=== PATIENT | female | born 1965 | race Caucasian/White ===

== ENCOUNTER 2017-06-13 05:26 | Day surgery (SDC) | payer SELFPAY ==
[~2017-06-13] VITALS: Ht 162.6 cm; Wt 74.6 kg
[~2017-06-13 05:26] MED LIST: 00186-0370-20 IH; ACTOS 15MG TAB15 MG PO; ASPIRIN E.C. 8181 MG PO; BYETTA 5MC300 MCG/SY SC; CETIRIZINE; COLACE 100100 MG/CAP PO; CYMBALTA 60MG60 MG PO; HCTZ; JANUMET 1000 MG1 TA1 PO; JANUMXR1000-50 PO; LEVEMIR100 U/ML SQ; LEXAPRO 10MG10 MG PO; LEXAPRO20 MG PO; LINZESS145CAP PO; LORTAB 7.5/5001 TAB PO; MOTRIN 600600 MG/TAB PO; NAPROSYN500 MG PO; NEXIUM24HROTC PO; NIRAVAM0.25 MG PO; NORCO 325 MG-101 TAB PO; PHENERGAN 25 TA25 MG PO; PROVENTIL0.09 MG/A1 IH; RT SPIRIVA18 MCG IH; SINGULAIR 110 MG/TAB PO; SOMA 350MG350 MG/TAB PO; XANAX .25M0.25 MG/TA PO; ZANTAC 7575 MG PO; ZOFRAN 4MG T4 MG/TAB PO
[2017-06-13 05:55] VITALS: BP 123/87; PULSE 100; TEMP 98.3
[2017-06-13] MEDS ORDERED: GLUCOTROL10 MG PO (06:21)
[2017-06-13 07:22] VITALS: BP 117/78; PULSE 100
[2017-06-13 07:37] VITALS: BP 110/73; PULSE 88
[2017-06-13 07:52] VITALS: BP 113/71; PULSE 89
[2017-06-13] MEDS ORDERED: NORCO 325 MG-51 TAB PO (07:59)
[2017-06-13] MEDS ORDERED: COLACE 100100 MG/CAP PO (08:00)
[2017-06-13] MEDS ORDERED: ZOFRAN 4MG T4 MG/TAB PO (08:01)
[2017-06-13] MEDS ORDERED: MOBIC15 MG PO (08:02)
== END 2017-06-13 08:21 | disposition home or self-care (01) ==
LOC: SDCO 05:26
DX: M65.4 Radial styloid tenosynovitis [de Quervain] (principal); F41.9 Anxiety disorder, unspecified; J45.909 Unspecified asthma, uncomplicated; F32.9 Major depressive disorder, single episode, unspecified; E11.9 Type 2 diabetes mellitus without complications; F17.210 Nicotine dependence, cigarettes, uncomplicated; Z90.49 Acquired absence of other specified parts of digestive tract; Z90.710 Acquired absence of both cervix and uterus; Z79.4 Long term (current) use of insulin; Z79.82 Long term (current) use of aspirin; Z88.1 Allergy status to other antibiotic agents; Z88.2 Allergy status to sulfonamides; Z88.0 Allergy status to penicillin; Z88.8 Allergy status to other drugs, medicaments and biological substances; Z82.5 Family history of asthma and other chronic lower respiratory diseases; Z80.6 Family history of leukemia; Z83.3 Family history of diabetes mellitus; Z82.49 Family history of ischemic heart disease and other diseases of the circulatory system
CPT/HCPCS: J0690; J1100; J1885; J2250; J2405; J2704; J3010

== ENCOUNTER 2018-11-26 10:15 | Emergency (ER) | payer SELFPAY ==
[~2018-11-26] VITALS: Ht 162.6 cm; Wt 72.7 kg
[~2018-11-26 10:15] MED LIST changes: +GLUCOTROL10 MG PO; +MOBIC15 MG PO; +NORCO 325 MG-51 TAB PO
[2018-11-26 10:50] VITALS: TEMP 98.1
[2018-11-26 13:07] LABS: BASO % 0.5 % (0.0-2.0); EOS # 0.1 (0.0-0.7); EOS % 1.2 % (0-4.0); GRAN # 5.3 (1.4-6.5); GRAN % 64.7 % (42.2-75.2); HEMATOCRIT 47.3 % (37.0-47.0); HEMOGLOBIN 16.6 g/dl (12.5-16.0); LYMPH # 1.8 (1.2-3.4); LYMPH % 21.5 % (20.0-51.0); MEAN CELL VOLUME 85 fl (80.0-100.0); MEAN CORPUSCULAR HEMOGLOBIN 30 pg (27.0-31.0); MEAN CORPUSCULAR HGB CONC 35 g/dl (33.0-37.0); MEAN PLATELET VOLUME 10.8 fl (7.4-10.4); MONO % 11.7 % (1.7-9.3); PLATELET COUNT 242 K/mm3 (130-400); REDCELL DISTRIBUTION WIDTH-CV 12.1 % (11.5-14.5)
[2018-11-26 13:18] LABS: ALANINE AMINOTRANSFERASE < 6 U/L (9-52); ALBUMIN 4.6 gm/dL (3.5-5.0); ALKALINE PHOSPHATASE 101 U/L (50-136); ANION GAP 10 mmol/L (7-16); AST,SGOT 18 U/L (15-37); BILIRUBIN,TOTAL 0.6 mg/dL (0.0-1.0); BLOOD UREA NITROGEN 11 mg/dL (7-17); CALCIUM 9.9 mg/dL (8.4-10.2); CARBON DIOXIDE 25 mmol/L (22-30); CHLORIDE 101 mmol/L (98-107); GLUCOSE 245 mg/dL (74-106); LIPASE 40 U/L (23-300); POTASSIUM 4.2 mmol/L (3.4-5.0); SODIUM 136 mmol/L (137-145)
[2018-11-26 13:23] LABS: C-REACTIVE PROTEIN < 0.5 mg/dL (0.0-0.9)
[2018-11-26 13:25] LABS: COLLECTION METHOD CLEAN CATCH
[2018-11-26 13:26] LABS: ACETONE,SERUM NEGATIVE
[2018-11-26 13:31] LABS: TROPONIN-I < 0.012 ng/mL (0.000-0.035)
[2018-11-26 13:40] LABS: MUCOUS Present /lpf; PH 5 (5-8); SQUAMOUS EPITHELIAL 0-2 /hpf; URINE APPEARANCE Clear; URINE BACTERIA None Seen /hpf; URINE BILIRUBIN Negative (NEGATIVE); URINE BLOOD Negative (NEGATIVE); URINE COLOR Yellow; URINE GLUCOSE 3+ (NEGATIVE); URINE KETONE Trace (NEGATIVE); URINE LEUKOCYTE ESTERASE Negative (NEGATIVE); URINE NITRATE Negative (NEGATIVE); URINE PROTEIN(semi-quant) 1+ (NEGATIVE); URINE RBC 0-2 /hpf; URINE UROBILINOGEN Negative (NEGATIVE)
[2018-11-26 15:37] VITALS: BP 131/81; PULSE 104
== END 2018-11-26 15:38 | disposition home or self-care (01) ==
LOC: COL.ER 10:15
PROVIDERS: Emergency Medicine
DX: J20.9 Acute bronchitis, unspecified (principal); E11.9 Type 2 diabetes mellitus without complications; F17.210 Nicotine dependence, cigarettes, uncomplicated; Z90.49 Acquired absence of other specified parts of digestive tract; Z90.710 Acquired absence of both cervix and uterus; Z79.4 Long term (current) use of insulin; Z79.82 Long term (current) use of aspirin; Z79.51 Long term (current) use of inhaled steroids
CPT/HCPCS: J7030

== ENCOUNTER → 2019-11-20 | Outpatient (CLI) | payer SELFPAY | LOC: ZLAB.ENT 16:21 | DX: R59.0 Localized enlarged lymph nodes (principal) ==

== ENCOUNTER → 2020-02-25 | Outpatient (CLI) | payer SELFPAY | LOC: COL.RAD 09:57 | DX: C85.90 Non-Hodgkin lymphoma, unspecified, unspecified site (principal); Z90.49 Acquired absence of other specified parts of digestive tract; Z90.710 Acquired absence of both cervix and uterus | CPT/HCPCS: Q9967 ==

== ENCOUNTER → 2020-09-09 | Outpatient (CLI) | payer SELFPAY | LOC: COL.RAD 08:11 | DX: C82.18 Follicular lymphoma grade II, lymph nodes of multiple sites (principal); E27.8 Other specified disorders of adrenal gland; S22.43XD Multiple fractures of ribs, bilateral, subsequent encounter for fracture with routine healing; Z90.49 Acquired absence of other specified parts of digestive tract; Z90.710 Acquired absence of both cervix and uterus | CPT/HCPCS: Q9967 ==

== ENCOUNTER → 2021-03-09 | Outpatient (CLI) | payer SELFPAY | LOC: COL.RAD 02-23 08:30 | DX: C85.90 Non-Hodgkin lymphoma, unspecified, unspecified site (principal); E07.9 Disorder of thyroid, unspecified; Z90.710 Acquired absence of both cervix and uterus; Z90.49 Acquired absence of other specified parts of digestive tract | CPT/HCPCS: Q9967 ==

== ENCOUNTER → 2021-09-03 | Outpatient (CLI) | payer SELFPAY | LOC: COL.RAD 10:14 | DX: C82.18 Follicular lymphoma grade II, lymph nodes of multiple sites (principal) ==

== ENCOUNTER 2021-11-13 16:26 | Emergency (ER) | payer SELFPAY ==
[~2021-11-13] VITALS: Ht 162.6 cm; Wt 73.2 kg
[2021-11-13 17:14] LABS: HEMATOCRIT 44.5 % (37.0-47.0); HEMOGLOBIN 15.9 g/dl (12.5-16.0); MEAN CELL VOLUME 82 fl (80.0-100.0); MEAN CORPUSCULAR HEMOGLOBIN 29 pg (27-31); MEAN CORPUSCULAR HGB CONC 36 g/dl (33.0-37.0); MEAN PLATELET VOLUME 10.2 fl (7.4-10.4); PLATELET COUNT 374 K/mm3 (130-400); RED BLOOD COUNT 5.43 M/mm3 (4.10-5.30); REDCELL DISTRIBUTION WIDTH-CV 12.3 % (11.5-14.5)
[2021-11-13 17:31] LABS: ALBUMIN 4.3 gm/dL (3.5-5.0); BILIRUBIN,TOTAL 0.7 mg/dL (0.2-1.2); CALCIUM 10.5 mg/dL (8.4-10.2); CREATININE, serum 0.77 mg/dL (0.57-1.11); POTASSIUM 3.4 mmol/L (3.5-4.5); TOTAL PROTEIN 7.8 gm/dL (6.2-8.1)
[2021-11-13 18:17] LABS: LYMPHOCYTE 4 % (20.0-51.0); NEUTROPHILS 96 % (42.0-75.2); PLATELET ESTIMATE NORMAL (NORMAL)
[2021-11-13 19:02] LABS: COLLECTION METHOD CLEAN CATCH
[2021-11-13 19:18] LABS: URINE APPEARANCE Clear (CLEAR/HAZY); URINE COLOR Yellow (YELLOW)
[2021-11-13 19:19] LABS: PH 5.5 (5.0-8.5); URINE BLOOD TRACE-INTACT (NEGATIVE); URINE GLUCOSE 3+ (NEGATIVE); URINE KETONE 4+ (NEGATIVE); URINE NITRATE Negative (NEGATIVE); URINE PROTEIN(semi-quant) Negative (NEGATIVE); URINE UROBILINOGEN 0.2 E.U/dL (0.2-1.0)
[2021-11-13 19:23] LABS: SQUAMOUS EPITHELIAL None Seen /hpf (0-10); URINE BACTERIA None Seen /hpf (NONE SEEN); URINE RBC 0-2 /hpf (0-2)
[2021-11-13 19:31] VITALS: TEMP 98.5
[2021-11-13] MEDS ORDERED: REGLAN 10MG10 MG/TAB PO (19:58)
[2021-11-13 21:10] VITALS: BP 152/85; PULSE 110
== END 2021-11-13 21:10 | disposition home or self-care (01) ==
LOC: COL.ER 16:26
PROVIDERS: Physician Assistant
DX: R11.2 Nausea with vomiting, unspecified (principal); T45.1X5A Adverse effect of antineoplastic and immunosuppressive drugs, initial encounter; C85.90 Non-Hodgkin lymphoma, unspecified, unspecified site; E11.9 Type 2 diabetes mellitus without complications; Z79.4 Long term (current) use of insulin
CPT/HCPCS: J1790; J2405; J2550; J2765; J7030; Q9967